=== PATIENT | female | born 2000 | race Caucasian/White ===

== ENCOUNTER 2018-09-15 08:47 | Emergency (ER) | payer MEDICAID ==
[~2018-09-15] VITALS: Ht 165.1 cm; Wt 72.1 kg
[2018-09-15 08:50] VITALS: Ht 165.1 cm; Wt 72.1 kg
[2018-09-15 10:52] VITALS: BP 113/74
== END 2018-09-15 10:52 | disposition home or self-care (01) ==
LOC: ED 08:47
DX: N75.1 Abscess of Bartholin's gland (principal); Z88.6 Allergy status to analgesic agent
CPT/HCPCS: J2001

== ENCOUNTER 2018-09-17 15:32 | Emergency (ER) | payer MEDICAID ==
[2018-09-17 15:37] VITALS: Ht 165.1 cm
[2018-09-17 17:44] VITALS: BP 125/69
== END 2018-09-17 17:44 | disposition home or self-care (01) ==
LOC: ED 15:32
DX: Z48.01 Encounter for change or removal of surgical wound dressing (principal); Z88.6 Allergy status to analgesic agent